=== PATIENT | male | born 1990 | race Two or more races ===

== ENCOUNTER 2021-12-30 15:27 | Emergency (ER) | payer OTHER ==
[~2021-12-30] VITALS: Ht 172.7 cm; Wt 81.6 kg
[2021-12-30 15:35] VITALS: BP 130/70
== END 2021-12-30 16:31 | disposition home or self-care (01) ==
LOC: EDBD 15:27 → ER 15:33
DX: T78.40XA Allergy, unspecified, initial encounter (principal); X58.XXXA Exposure to other specified factors, initial encounter